=== PATIENT | male | born 1955 | race Caucasian/White ===

== ENCOUNTER 2017-10-21 10:46 | Day surgery (SDC) | payer BC, MEDICARE ==
[2017-10-17 12:02] LABS: BASOPHILS % (AUTO) 0.3 % (0-1); EOSINOPHILS # (AUTO) 0.3 X10'3 (0-0.9); EOSINOPHILS % (AUTO) 3.8 % (0-6); LYMPHOCYTES # (AUTO) 1.5 X10'3 (1.1-4.8); LYMPHOCYTES % (AUTO) 19.1 % (21-51); MEAN CORPUSCULAR HEMOGLOBIN 29.6 PG (27.0-31.0); MEAN CORPUSCULAR HGB CONC 35.2 % (33.0-36.5); MEAN CORPUSCULAR VOLUME 84.2 FL (78-98); MEAN PLATELET VOLUME 7.4 FL (7.4-10.4); MONOCYTES # (AUTO) 0.5 X10'3 (0-0.9); MONOCYTES % (AUTO) 6.4 % (2-12); NEUTROPHILS # (AUTO) 5.6 X10'3 (1.8-7.7); NEUTROPHILS % (AUTO) 70.4 % (42-75); PRE OP HEMATOCRIT 42.9 % (42.0-52.0); PRE OP HEMOGLOBIN 15.1 g/dL (14.0-17.9); PRE OP PLATELET COUNT 209 X10'3 (140-440); RED BLOOD COUNT 5.09 X10'6 (4.70-6.10); RED CELL DISTRIBUTION WIDTH 12.8 % (11.5-14.5)
[2017-10-17 12:11] LABS: CLARITY,URINE CLEAR (Clear); COLOR,URINE YELLOW (Yellow); GLUCOSE, URINE NEGATIVE (Neg); KETONES,URINE NEGATIVE (Neg); LEUKOCYTE ESTERASE ,URINE NEGATIVE (Neg); NITRITES, URINE NEGATIVE (Neg); OCCULT BLOOD,URINE NEGATIVE (Neg); PRE OP PROTIME 10.3 SECONDS (9.0-12.0); PROTEIN,URINE NEGATIVE (Neg); UROBILINOGEN,URINE 0.2 E.U/dL (0.2-1.0)
[2017-10-17 12:17] LABS: ALBUMIN 3.6 G/DL (3.4-5.0); ALBUMIN/GLOBULIN RATIO 1.1 (1.1-1.5); ALKALINE PHOSPHATASE 86 IU/L (46-116); BLOOD UREA NITROGEN 19 MG/DL (7-18); BUN/CREATININE RATIO 19.4 (5.4-32.0); CALCIUM 8.6 MG/DL (8.5-10.1); CHLORIDE 107 MMOL/L (99-107); CREATININE 0.98 MG/DL (0.60-1.10); PRE OP ALT 33 U/L (30-65); PRE OP ANION GAP 7 (8-16); PRE OP AST 20 U/L (10-37); PRE OP BILIRUB, TOTAL 0.5 MG/DL (0.0-1.0); PRE OP GLUCOSE 78 MG/DL (70-104); PRE OP POTASSIUM 4.1 MMOL/L (3.4-5.1); PRE OP SODIUM 143 MMOL/L (135-145); TOTAL CARBON DIOXIDE 29.2 MMOL/L (24-32); UA COLLECTION TYPE CLN CATCH MIDSTREAM; eGFR 77 ML/MIN
[2017-10-21] VITALS (11 sets, daily range): BP systolic 109–155; BP diastolic 69–94
[~2017-10-21] VITALS: Ht 177.8 cm; Wt 105.4 kg
[~2017-10-21 10:46] MED LIST: ASPI-1265 PO; BUDE10.2 INH; CLON0.5T4 PO; HYOS0.3737 PO; UMEC1DIS IH; [UNRECOGNIZED DRUG - CODE] PO; albuterol 2.5 MG/3 ML nebule NEB ONE; cefazolin/dext.iso 2gm/50ml 50 ML IV ONE; famotidine 20mg tablet PO ONE; gabapentin 300mg capsule PO ONE; oxyCODONE SR 10mg (sust. release) tab PO ONE; ringers solution, lacted 1,000 ML IV SCH; tranexamic acid inj. 1,000 MG in normal saline 100ml IV soln 90 ML IV ONE
[2017-10-21] MEDS ORDERED: LIDOcaine 1% (10mg/ml) 2ml vial ONE (11:01)
[2017-10-21] MEDS ORDERED: cloNIDine hcl/PF 100mcg/ml inj ONE (11:26)
[2017-10-21] MEDS ORDERED: sevoflurane 250ml liquid IH ONE (13:44)
[2017-10-21] MEDS ORDERED: midazolam 2 mg/2 ml injection ONE (13:48)
[2017-10-21] MEDS ORDERED: fentaNYL/PF 50MCG/1 ML 2ML syringe ONE (13:48)
[2017-10-21] MEDS ORDERED: ringers solution, lacted 1,000 ML IV SCH (14:25)
[2017-10-21] MEDS ORDERED: morphine 2 MG/ML inj. syringe IV PRN ×2 (14:25)
[2017-10-21] MEDS ORDERED: meperidine/PF 50mg/ml syringe IV PRN ×3 (14:25)
[2017-10-21] MEDS ORDERED: labetalol 5mg/ml 20ml inj. IV PRN (14:25)
[2017-10-21] MEDS ORDERED: ondansetron/PF 4mg/2ml inj IV PRN (14:25)
[2017-10-21] MEDS ORDERED: hydrALAZINE 20mg/ml inj. IV PRN (14:25)
[2017-10-21] MEDS ORDERED: propofol inj 20 ML IV ONE (14:39)
[2017-10-21] MEDS ORDERED: LIDOcaine 1%/PF (10mg/ml) 5ml vial ONE (14:39)
[2017-10-21] MEDS ORDERED: dexamethasone sod phosphate 4mg/ml inj. ONE (14:39)
[2017-10-21] MEDS ORDERED: ondansetron/PF 4mg/2ml inj ONE (14:39)
[2017-10-21] MEDS ORDERED: ceFAZolin 1000mg inj ONE (14:57)
== END 2017-10-21 17:00 | disposition home or self-care (01) ==
LOC: PAS 10:46
PROVIDERS: ATTEND Specialist
DX: M65.861 Other synovitis and tenosynovitis, right lower leg (principal); M25.861 Other specified joint disorders, right knee; G47.33 Obstructive sleep apnea (adult) (pediatric); I10 Essential (primary) hypertension; F32.9 Major depressive disorder, single episode, unspecified; F41.9 Anxiety disorder, unspecified; J44.9 Chronic obstructive pulmonary disease, unspecified; Z96.651 Presence of right artificial knee joint; I25.10 Atherosclerotic heart disease of native coronary artery without angina pectoris; E66.9 Obesity, unspecified; Z91.011 Allergy to milk products; Z91.040 Latex allergy status; Z79.01 Long term (current) use of anticoagulants; Z85.820 Personal history of malignant melanoma of skin; Z79.82 Long term (current) use of aspirin; Z87.891 Personal history of nicotine dependence; Z95.5 Presence of coronary angioplasty implant and graft; Z88.0 Allergy status to penicillin; Z79.899 Other long term (current) drug therapy; Z90.49 Acquired absence of other specified parts of digestive tract; Z98.890 Other specified postprocedural states; Z68.33 Body mass index [BMI] 33.0-33.9, adult
CPT/HCPCS: 29876; 36415; 80053; 81003; 85025; 85610; 85730; 94640; 94760; A6449; J0690; J0735; J1100; J2001; J2250; J2405; J2704; J3010; J3490; J7030; J7120; A7000

== ENCOUNTER 2018-05-29 08:48 | Day surgery (SDC) | payer MEDICARE, BC ==
[~2018-05-29] VITALS: Ht 177.8 cm; Wt 103.7 kg
[2018-05-29] VITALS (10 sets, daily range): BP systolic 113–139; BP diastolic 60–84
[~2018-05-29 08:48] MED LIST changes: +CLON0.5T12 PO; -CLON0.5T4 PO; -albuterol 2.5 MG/3 ML nebule NEB ONE; -cefazolin/dext.iso 2gm/50ml 50 ML IV ONE; -famotidine 20mg tablet PO ONE; -gabapentin 300mg capsule PO ONE; -oxyCODONE SR 10mg (sust. release) tab PO ONE; -ringers solution, lacted 1,000 ML IV SCH; -tranexamic acid inj. 1,000 MG in normal saline 100ml IV soln 90 ML IV ONE
[2018-05-29] MEDS ORDERED: sod bicarbonate 150mEq in D5W 1,150 ML IV ONE (09:10)
[2018-05-29] MEDS ORDERED: diphenhydrAMINE 25mg capsule PO PRN (09:10)
[2018-05-29] MEDS ORDERED: MULT1TAB74 PO (09:50)
[2018-05-29] MEDS ORDERED: HYOS0.1277 SL (09:50)
[2018-05-29] MEDS ORDERED: ALBU8.5H8 INH (09:50)
[2018-05-29 10:18] LABS: ALBUMIN 3.9 G/DL (3.4-5.0); ANION GAP 7 (8-16); BASOPHILS # (AUTO) 0.3 X10'3 (0-0.2); BASOPHILS % (AUTO) 3.3 % (0-1); BLOOD UREA NITROGEN 21 MG/DL (7-18); BUN/CREATININE RATIO 22.8 (5.4-32.0); CHLORIDE 104 MMOL/L (99-107); CREATININE 0.92 MG/DL (0.60-1.10); EOSINOPHILS # (AUTO) 0.3 X10'3 (0-0.9); EOSINOPHILS % (AUTO) 3.3 % (0-6); GLUCOSE 81 MG/DL (70-104); HEMOGLOBIN 16.5 g/dl (14.0-17.9); LYMPHOCYTES # (AUTO) 1.7 X10'3 (1.1-4.8); LYMPHOCYTES % (AUTO) 21.3 % (21-51); MAGNESIUM 2.2 MG/DL (1.5-2.4); MEAN CORPUSCULAR HEMOGLOBIN 28.6 PG (27.0-31.0); MEAN CORPUSCULAR HGB CONC 33.8 % (33.0-36.5); MEAN CORPUSCULAR VOLUME 84.7 FL (78-98); MEAN PLATELET VOLUME 7.5 FL (7.4-10.4); MONOCYTES # (AUTO) 0.6 X10'3 (0-0.9); MONOCYTES % (AUTO) 7.2 % (2-12); NEUTROPHILS # (AUTO) 5.2 X10'3 (1.8-7.7); NEUTROPHILS % (AUTO) 64.9 % (42-75); PLATELET COUNT 196 X10'3 (140-440); RED BLOOD COUNT 5.78 X10'6 (4.70-6.10); RED CELL DISTRIBUTION WIDTH 13.3 % (11.5-14.5); SODIUM 141 MMOL/L (135-145); TOTAL CARBON DIOXIDE 29.7 MMOL/L (24-32); WHITE BLOOD COUNT 8.1 X10'3 (4.5-11.0); eGFR 83 ML/MIN
[2018-05-29] MEDS ORDERED: LIDOcaine 1% 30ml preserv. free vial ONE (10:18)
[2018-05-29] MEDS ORDERED: midazolam 2 mg/2 ml injection ONE ×3 (10:18→11:22)
[2018-05-29] MEDS ORDERED: iohexol 350 MG/ML 50ML vial IV ONE (10:18)
[2018-05-29] MEDS ORDERED: iohexol 350MG/ML 100ml bottle IV ONE ×2 (10:18→11:03)
[2018-05-29] MEDS ORDERED: fentaNYL/PF 50MCG/1 ML 2ML syringe ONE ×2 (10:18→11:45)
[2018-05-29] MEDS ORDERED: heparin 1,000unit/ml 10ml vial 10 ML ONE (11:02)
[2018-05-29] MEDS ORDERED: adenosine 90 MG/30ml kit =/or below 120kg Cath Lab IV ONE (11:02)
[2018-05-29] MEDS ORDERED: verapamil 2.5 mg/ml inj IV ONE (11:23)
[2018-05-29] MEDS ORDERED: nitroGLYCERIN-Tridil 50MG/D5W 250 ML IV ONE (11:23)
[2018-05-29] MEDS ORDERED: nitroGLYCERIN 0.4mg SUBLingual tab SL ONE (11:26)
[2018-05-29] MEDS ORDERED: clopidogrel 300mg tablet ONE (11:29)
[2018-05-29] MEDS ORDERED: ketorolac tromethamine 15mg/ml inj. IV ONE (12:15)
[2018-05-29] MEDS ORDERED: pneumococcal 23-VAL P-sac vacc 25 mcg/0.5ml vial IMVAC ONE (13:55)
== END 2018-05-29 15:00 | disposition home or self-care (01) ==
LOC: SSTAY O 08:48
PROVIDERS: ATTEND Internal Medicine Cardiovascular Disease
DX: I25.118 Atherosclerotic heart disease of native coronary artery with other forms of angina pectoris (principal); I10 Essential (primary) hypertension; G47.33 Obstructive sleep apnea (adult) (pediatric); E78.00 Pure hypercholesterolemia, unspecified; F41.8 Other specified anxiety disorders; I45.19 Other right bundle-branch block; J44.9 Chronic obstructive pulmonary disease, unspecified; K21.9 Gastro-esophageal reflux disease without esophagitis; M19.90 Unspecified osteoarthritis, unspecified site; Z23 Encounter for immunization; Z90.49 Acquired absence of other specified parts of digestive tract; Z87.891 Personal history of nicotine dependence; Z87.442 Personal history of urinary calculi; Z85.820 Personal history of malignant melanoma of skin; Z96.651 Presence of right artificial knee joint; Z95.5 Presence of coronary angioplasty implant and graft; Z88.0 Allergy status to penicillin; Z79.82 Long term (current) use of aspirin; Z91.011 Allergy to milk products; Z88.8 Allergy status to other drugs, medicaments and biological substances; Z98.890 Other specified postprocedural states; Z79.899 Other long term (current) drug therapy; Z80.42 Family history of malignant neoplasm of prostate; Z80.49 Family history of malignant neoplasm of other genital organs; Z82.49 Family history of ischemic heart disease and other diseases of the circulatory system
CPT/HCPCS: 36415; 80048; 83735; 85025; 85610; 90732; 93005; 93458; 99152; 99153; A6257; C1760; C1769; C1874; C1894; C9600; J0153; J1644; J1885; J2250; J3010; J3490; Q0163; Q2037; Q9967; A4620